=== PATIENT | female | born 1990 | race American Indian/Alaskan Native ===

== ENCOUNTER 2016-12-11 12:57 | Emergency (ER) | payer MEDICAID ==
[2016-12-11 13:12] VITALS: TEMP 98.7; O2SAT 99
[2016-12-11 13:18] VITALS: BMI 32.1
--- NOTE | 2016-12-11 13:23 | ED PDOC ---
Arrival/HPI - General Chief Complaint: Chest Pain Time Seen by Provider: 12/11/16 13:05 Historian: Patient - History of Present Illness Time/Duration: Other (This morning) Symptom Onset: Gradual Symptom Course: Unchanged Quality: Other (Pleuritic) Severity Level: Mild Activities at Onset: Rest Associated Symptoms (Text): 12/11/16 13:21 Patient woke up this morning with chest pain. The pain is made worse by deep breathing. She is very anxious that something is seriously wrong with her. There is no dyspnea. No radiation of the pain. No back pain. No abdominal pain nausea or vomiting. No fever or chills. No cough congestion or URI. She has never experienced this previously. Family/Social History - Physician Review Nursing Documentation Reviewed: Yes Family/Social History: Unknown Family HX Smoking Status: Never Smoked Hx Alcohol Use: Yes (Has been drinking daily for the last 5 days) Hx Substance Use: No Allergies/Home Meds Allergies/Adverse Reactions: Allergies No Known Allergies Allergy (Unverified 12/11/16 13:18) Review of Systems - Physician Review All systems were reviewed & negative as marked: Yes - Review of Systems Constitutional: Normal Respiratory: Normal Cardiovascular: Chest Pain. absent: Palpitations, Syncope Gastrointestinal: Normal. absent: Abdominal Pain, Constipation, Diarrhea, Nausea, Vomiting Genitourinary Female: absent: Dysuria, Frequency, Hematuria Neurological: Normal. absent: Headache, Dizziness Physical Exam Vital Signs Temp Pulse Resp BP Pulse Ox 12/11/16 13:11 98.7 F 81 18 127/72 99 Temperature: Afebrile Blood Pressure: Normal Pulse: Regular Respiratory Rate: Normal Appearance: Positive for: Well-Appearing, Non-Toxic, Comfortable, Other (Anxious ) Pain Distress: None Mental Status: Positive for: Alert and Oriented X 3 - Systems Exam Head: Present: Atraumatic, Normocephalic Pupils: Present: PERRL Extroacular Muscles: Present: EOMI Conjunctiva: Present: Normal Ears: Present: NORMAL TM, Normal Canal. No: Erythema Mouth: Present: Moist Mucous Membranes Pharnyx: No: ERYTHEMA, EXUDATE, TONSILS ENLARGED Neck: Present: Normal Range of Motion Respiratory/Chest: Present: Clear to Auscultation, Good Air Exchange. No: Respiratory Distress, Accessory Muscle Use, Decreased Breath Sounds, Tender to Palpation Cardiovascular: Present: Regular Rate and Rhythm, Normal S1, S2. No: Murmurs Abdomen: Present: Normal Bowel Sounds. No: Tenderness, Distention, Peritoneal Signs, Rebound, Guarding Upper Extremity: Present: Normal Inspection. No: Cyanosis, Edema Lower Extremity: Present: Normal Inspection. No: Edema Neurological: Present: GCS=15, CN II-XII Intact, Speech Normal, Motor Func Grossly Intact Skin: Present: Warm, Dry, Normal Color. No: Rashes Psychiatric: Present: Alert, Oriented x 3, Normal Insight, Normal Concentration Medical Decision Making ED Course and Treatment: 12/11/16 13:30 EKG shows normal sinus rhythm rate approximately [address] or T-wave changes 12/11/16 15:43 Symptoms improved. Denies depression. Denies suicidal or homicidal ideation. Wants to go home. - Lab Interpretations Lab Results: 12/11/16 13:48 12/11/16 13:48 Lab Results 12/11/16 13:49: Urine Color Yellow, Urine Appearance Sl cloudy, Urine pH 6.5, Ur Specific [place] 1.025, Urine Protein 30 H, Urine Glucose (UA) Negative, Urine Ketones Trace H, Urine Blood Moderate H, Urine Nitrate Negative, Urine Bilirubin Negative, Urine Urobilinogen 0.2, Ur Leukocyte Esterase Negative, Urine RBC 25 - 30, Urine WBC Negative, Ur Epithelial Cells 6 - 8, Urine Other Mucus, Urine Opiates Screen Negative, Urine Methadone Screen Negative, Ur Barbiturates Screen Negative, Ur Phencyclidine Scrn Negative, Ur Amphetamines Screen Negative, U Benzodiazepines Scrn Negative, U Oth Cocaine Metabols Negative, U Cannabinoids Screen Negative 12/11/16 13:48: WBC 8.0, RBC 4.46, Hgb 13.6, Hct 39.0, MCV 87.4, MCH 30.5, MCHC 34.9, RDW 14.4, Plt Count 253, MPV 8.8, Gran % 72.5 H, Lymph % (Auto) 18.9 L, Banner % (Auto) 7.2 H, Eos % (Auto) 1.2 L, Baso % (Auto) 0.2, Gran # 5.80, Lymph # 1.5, Banner # 0.6, Eos # 0.1, Baso # 0.02, D-Dimer, Quantitative 0.51 H, Sodium 136, Potassium 4.2, Chloride 99, Carbon Dioxide 26, Anion Gap 15, BUN 7, Creatinine 0.7, Est GFR ( Amer) > 60, Est GFR (Non-Af Amer) > 60, Random Glucose 92, Calcium 9.5, Total Bilirubin 0.8, AST 34, ALT 36, Alkaline Phosphatase 124, Lactate Dehydrogenase 471, Total Creatine Kinase 112, Troponin I < 0.01, Total Protein 8.9 H, Albumin 4.6, Globulin 4.3, Albumin/Globulin Ratio 1.1, Lipase 72, Alcohol, Quantitative < 10 - RAD Interpretation Radiology Orders: 12/11/16 13:18 CHEST TWO VIEWS (PA/LAT) [RAD] Stat Chest 2 view shows no infiltrate effusion cardiomegaly or 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 Ulcer: No - Disposition Have Diagnosis and Disposition been Completed?: Yes Diagnosis: Pleuritic chest pain Disposition: HOME/ ROUTINE Disposition Time: 15:44 Patient Plan: Discharge Condition: IMPROVED Discharge Instructions (ExitCare): Chest Pain (ED), Pleurisy (ED) Additional Instructions: Follow with PMD. Follow-up in the ER as needed. Prescriptions: Naproxen [Naprosyn] 500 mg PO BID #14 tab
[2016-12-11 13:49] LABS: ADD MANUAL DIFF? NO
[2016-12-11 13:53] LABS: BASO # 0.02 K/mm3 (0.0-2.0); BASO % 0.2 % (0.0-3.0); EOS # 0.1 (0.0-0.7); EOS % 1.2 % (1.5-5.0); GRAN % 72.5 % (50.0-68.0); LYMPH # 1.5 (1.2-3.4); LYMPH % 18.9 % (22.0-35.0); MEAN CELL VOLUME 87.4 fL (80.0-105.0); MEAN CORPUSCULAR HEMOGLOBIN 30.5 pg (25.0-35.0); MEAN CORPUSCULAR HGB CONC 34.9 g/dl (31.0-37.0); MEAN PLATELET VOLUME 8.8 fl (7.0-11.0); MONO # 0.6 (0.1-0.6); MONO % 7.2 % (1.0-6.0); PLATELET COUNT 253 10^3/uL (120.0-450.0); RED CELL DISTRIBUTION WIDTH 14.4 % (11.5-14.5)
[2016-12-11 13:55] LABS: PH,URINE 6.5 (4.7-8.0); URINE BILIRUBIN NEGATIVE (NEGATIVE); URINE BLOOD MODERATE (NEGATIVE); URINE GLUCOSE (UA) NEGATIVE (NEGATIVE); URINE KETONE TRACE mg/dL (NEGATIVE); URINE LEUKOCYTE ESTERASE NEGATIVE Leu/uL (NEGATIVE); URINE PROTEIN 30 mg/dL (<30 mg/dL); URINE UROBILINOGEN 0.2 E.U./dL (<1 E.U./dL)
[2016-12-11 14:00] LABS: URINE APPEARANCE SL CLOUDY (CLEAR); URINE COLOR YELLOW (YELLOW)
[2016-12-11 14:01] LABS: URINE RBC 25 - 30 /hpf (0-2); URINE WBC NEGATIVE /hpf (0-6)
[2016-12-11 14:03] LABS: ALB/GLOB RATIO 1.1 (1.1-1.8); ALKALINE PHOSPHATASE 124 U/L (38-133); ALT/SGPT 36 U/L (7-56); AST/SGOT 34 U/L (15-39); BILIRUBIN,TOTAL 0.8 mg/dL (0.2-1.3); BLOOD UREA NITROGEN 7 mg/dL (7-21); CALCIUM 9.5 mg/dL (8.4-10.5); CARBON DIOXIDE 26 mmol/L (21-33); CHLORIDE 99 mmol/L (98-107); GFR AFRICAN-AMERICAN > 60; GLUCOSE,RANDOM 92 mg/dL (70-110); LIPASE 72 U/L (23-300); POTASSIUM 4.2 mmol/L (3.6-5.0); SODIUM 136 mmol/L (132-148); TOTAL PROTEIN 8.9 g/dL (5.8-8.3)
[2016-12-11 14:17] LABS: TROPONIN I < 0.01 ng/mL
--- NOTE | 2016-12-11 14:36 | RAD ---
HISTORY: cp COMPARISON: None available. TECHNIQUE: Chest PA and lateral FINDINGS: Examination limited by habitus. LUNGS: No focal consolidation. Please note that chest x-ray has limited sensitivity for the detection of pulmonary masses. PLEURA: No significant pleural effusion identified. No definite pneumothorax . CARDIOVASCULAR: The cardiomediastinal silhouette appears within normal limits of size. OSSEOUS STRUCTURES: No acute osseous abnormality identified. VISUALIZED UPPER ABDOMEN: Unremarkable. OTHER FINDINGS: None. IMPRESSION: No focal consolidation, significant pleural effusion, or definite pneumothorax identified.
[2016-12-11 16:01] VITALS: BP 121/72; PULSE 80; RESP 16
--- NOTE | 2016-12-11 16:42 | CARD ---
APPROVED REPORT EKG Measurement Heart [id number] <Conclusion> Normal sinus rhythm Normal ECG
== END 2016-12-11 16:01 | disposition home or self-care (01) ==
LOC: ED 12:57
DX: R07.89 Other chest pain (principal)
CPT/HCPCS: 71020; 80053; 80320; 80324; 80345; 80346; 80349; 80353; 80358; 80361; 81001; 82550; 83615; 83690; 83992; 84484; 85025; 85378; 93005; 96374; 99283; J1885